=== PATIENT | female | born 1960 | race Caucasian/White ===

== ENCOUNTER → 2017-01-26 | Outpatient (CLI) | payer SELFPAY | END | disposition short-term general hospital (02) | LOC: CLONCO 11:54 | DX: D75.1 Secondary polycythemia (principal) ==

== ENCOUNTER → 2017-05-04 | Outpatient (CLI) | payer BC | END | disposition short-term general hospital (02) | LOC: CLOBGYN 04-21 02:33 | DX: Z78.0 Asymptomatic menopausal state (principal) ==